=== PATIENT | female | born 1955 | race Caucasian/White ===

== ENCOUNTER 2018-02-09 07:00 | Day surgery (SDC) | payer BC ==
[2018-02-08 09:44] LABS: HEMATOCRIT 37.7 % (36.0-48.0); HEMOGLOBIN 12.6 g/dL (12-16); MCH 29.5 pg (26.0-34.0); MCHC 33.4 g/dL (31.0-37.0); MCV 88.3 fL (80.0-100.0); MEAN PLATELET VOLUME 10.2 fL (7.4-10.4); RBC 4.27 10x6/uL (4.00-5.40); RDW 13.2 % (11.5-14.5); WBC 5.9 10x3/uL (4.8-10.8)
[~2018-02-09] VITALS: Ht 165.1 cm; Wt 75.8 kg
[~2018-02-09 07:00] MED LIST: CALCIUM 600+D T1 TA1; CRANBERRY 400 M1 TA1; KRILL OIL 1,001 EAC1; L-LYSINE500 M1; LISINOPRIL10 MG PO; VITAMIN C250 MG PO; VITAMIN D5000 UNIT PO
[2018-02-09 07:54] VITALS: BP 144/75; Ht 165.1 cm; Wt 75.8 kg
[2018-02-09] MEDS ORDERED: VALIUM5 MG PO (09:45)
[2018-02-09] MEDS ORDERED: MIRALAX17 GM PO (09:45)
[2018-02-09] MEDS ORDERED: HYDROCODON-ACE1 EAC7 PO (09:48)
== END 2018-02-09 11:35 | disposition home or self-care (01) ==
LOC: D.OPS 07:00 → D.PAN 09:15 → D.OPS 09:35 → D.PAN 09:35 → D.OPS 09:45 → D.PAN 09:45 → D.OPS 11:35
PROVIDERS: Anesthesiology
DX: K64.8 Other hemorrhoids (principal)

== ENCOUNTER 2018-02-16 13:59 | Emergency (ER) | payer BC ==
[~2018-02-16] VITALS: Ht 165.1 cm; Wt 76.4 kg
[~2018-02-16 13:59] MED LIST changes: +HYDROCODON-ACE1 EAC7 PO; +MIRALAX17 GM PO; +VALIUM5 MG PO
[2018-02-16 14:14] VITALS: Ht 165.1 cm; Wt 76.4 kg
[2018-02-16 15:10] LABS: BASOPHILS 0.3 % (0-2); EOSINOPHILS 0.8 % (0-7); HEMATOCRIT 35.8 % (36.0-48.0); HEMOGLOBIN 12.1 g/dL (12-16); IMMATURE GRANULOCYTES 0.2 % (0-5); LYMPHOCYTES 8.7 % (15-50); MCH 29.6 pg (26.0-34.0); MCHC 33.8 g/dL (31.0-37.0); MCV 87.5 fL (80.0-100.0); MEAN PLATELET VOLUME 9.9 fL (7.4-10.4); MONOCYTES 6.7 % (2-11); NEUTROPHILS 83.3 % (40-80); PLATELET COUNT 245 10x3/uL (130-400); RBC 4.09 10x6/uL (4.00-5.40); RDW 13.2 % (11.5-14.5); WBC 12.6 10x3/uL (4.8-10.8)
[2018-02-16 15:32] LABS: ALBUMIN 3.7 g/dL (3.4-5.0); BILIRUBIN - TOTAL 0.72 mg/dL (0.2-1.3); CALCIUM 8.9 mg/dL (8.5-10.1); CARBON DIOXIDE 26.2 mmol/L (21.0-32.0); CREATININE - SERUM 0.9 mg/dL (0.6-1.3); POTASSIUM - SERUM 4.2 mmol/L (3.5-5.1); PROTEIN - SERUM 7.8 g/dL (6.4-8.2)
[2018-02-16 17:40] LABS: APPEARANCE CLEAR (CLEAR); BILIRUBIN NEGATIVE (NEGATIVE); COLOR YELLOW (YELLOW); GLUCOSE NEGATIVE (NEGATIVE); KETONE NEGATIVE (NEGATIVE); NITRITE NEGATIVE (NEGATIVE); PROTEIN NEGATIVE (NEGATIVE); UROBILINOGEN NORMAL (NORMAL)
[2018-02-16] MEDS ORDERED: CIPRO500 MG PO (18:09)
[2018-02-16] MEDS ORDERED: FLAGYL500 MG PO (18:09)
[2018-02-16] MEDS ORDERED: ZOFRAN8 MG PO (18:09)
[2018-02-16 18:26] VITALS: BP 116/77
== END 2018-02-16 18:26 | disposition home or self-care (01) ==
LOC: D.ER 13:59
PROVIDERS: Family Medicine
DX: K57.92 Diverticulitis of intestine, part unspecified, without perforation or abscess without bleeding (principal); K92.1 Melena; I10 Essential (primary) hypertension; K21.9 Gastro-esophageal reflux disease without esophagitis

== ENCOUNTER → 2018-05-26 20:33 | Outpatient (CLI) | payer BC ==
[2018-02-16 14:14] VITALS: BMI 28.0
[~2018-05-26 20:33] MED LIST changes: +CIPRO500 MG PO; +FLAGYL500 MG PO; +ZOFRAN8 MG PO
== END | disposition home or self-care (01) ==
LOC: D.MAMMO 14:45
DX: Z12.31 Encounter for screening mammogram for malignant neoplasm of breast (principal)

== ENCOUNTER → 2018-06-20 09:06 | Outpatient (CLI) | payer BC ==
[2018-02-16 14:14] VITALS: BMI 28.0
== END | disposition home or self-care (01) ==
LOC: D.US 08:00
DX: R92.8 Other abnormal and inconclusive findings on diagnostic imaging of breast (principal)

== ENCOUNTER 2020-04-30 15:00 | Outpatient (CLI) | payer BC ==
[2018-02-16 14:14] VITALS: BMI 28.0
== END 2020-04-30 23:59 | disposition home or self-care (01) ==
LOC: D.MAMMO 15:00
PROVIDERS: ATTEND Family Medicine
DX: Z12.31 Encounter for screening mammogram for malignant neoplasm of breast (principal)